=== PATIENT | female | born 1945 | race Caucasian/White ===

== ENCOUNTER 2022-03-11 18:27 | Emergency (ER) | payer MEDICARE, OTHER ==
[2022-03-11] MEDS ORDERED: Lidocaine 1% 20 ML MDV INJECT ONE (18:55)
[2022-03-11] MEDS ORDERED: Diphtheria,Pertussis(Acell),Tetanus Vaccine 0.5 ML Syringe IM ONE (18:56)
[2022-03-11] MEDS ORDERED: Bacitracin Oint 1 GM U/D Packet TOP ONE (18:56)
== END 2022-03-11 20:30 | disposition home or self-care (01) ==
LOC: JP.ED 18:27
DX: S81.811A Laceration without foreign body, right lower leg, initial encounter (principal); Z23 Encounter for immunization; W01.198A Fall on same level from slipping, tripping and stumbling with subsequent striking against other object, initial encounter
CPT/HCPCS: 12035; 90471; 90715; 99281; 99283-25